=== PATIENT | female | born 1955 | race Caucasian/White ===

== ENCOUNTER 2021-05-20 13:19 | Outpatient (CLI) | payer BC, SELFPAY ==
--- NOTE | 2021-05-20 13:43 | XR_ITS ---
WS: [id number] Sacroiliac joints, 3 views, 05/20/2021. Clinical Data: L40.9 - Psoriasis, unspecified Comparison: None. Findings: The SI joints are normal in width. No erosion, sclerosis or destruction is seen. There are no fractur es or dislocations. The adjacent visualized pelvis and hips are unremarkable. XR/XR sacroiliac jts m 3V [id number] Impression: Negative SI joints.
--- NOTE | 2021-05-20 13:43 | XR_ITS ---
WS: [email or web address] Right hand, 3 views, 05/20/2021 Clinical Data: M25.50 - Pain in unspecified joint Comparison: None. Findings: No fractures or dislocations are seen. The soft tissues are unremarkable. Mild osteoarthr itic change of the second through fifth DIP joints and the right first MCP joint is seen. No periarti cular demineralization or calcifications are seen. 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
--- NOTE | 2021-05-20 13:43 | XR_ITS ---
WS: [email or web address] Left hand, 3 views, 05/20/2021 Clinical Data: M25.50 - Pain in unspecified joint Comparison: None. Findings: No fractures or dislocations are seen. The soft tissues are unremarkable. Mild osteoarthritic change of the second through fifth DIP joints is seen.There is no periarticular demineralization or calcific ations. 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
[2021-05-20 14:36] LABS: Erythrocyte Sedimentation Rate 5 mm/hr (0-15)
[2021-05-20 15:05] LABS: C Reactive Protein 1.3 mg/L (0.0-4.9); Magnesium 2.2 mg/dL (1.7-2.3); Phosphorus 3.8 mg/dL (2.5-4.5); Thyroid Stimulating Hormone 3.84 uIU/mL (0.27-4.20)
[2021-05-20 15:11] LABS: Cortisol Random 6.51 ug/dL (2.47-19.5); Hepatitis B Core AB, Total Non-Reactive (Nonreactive); Hepatitis B Surface Antigen Non-Reactive (Nonreactive); Hepatitis C Virus Antibody Non-Reactive (Nonreactive)
[2021-05-20 15:23] LABS: Rheumatoid Factor < 10.0 IU/mL (0-14)
[2021-05-21 11:54] LABS: COMPLEMENT COMPONENT C3C 134 mg/dL (83-193); COMPLEMENT COMPONENT C4C 27 mg/dL (15-57)
[2021-05-21 11:57] LABS: CENTROMERE B ANTIBODY <1.0 NEG AI (<1.0 NEG); JO-1 ANTIBODY <1.0 NEG AI (<1.0 NEG); RNP ANTIBODY <1.0 NEG AI (<1.0 NEG); SCL-70 ANTIBODY <1.0 NEG AI (<1.0 NEG); SJOGREN'S ANTIBODY (SS-A) <1.0 NEG AI (<1.0 NEG); SM ANTIBODY <1.0 NEG AI (<1.0 NEG); SS-B <1.0 NEG AI (<1.0 NEG)
[2021-05-21 13:04] LABS: COMPLEMENT, TOTAL (CH50) >60 U/mL (31-60)
[2021-05-21 14:07] LABS: Cyclic Citrullinated Peptide <16 UNITS
[2021-05-21 15:48] LABS: ANA SCREEN, IFA NEGATIVE (NEGATIVE)
[2021-05-21 16:27] LABS: THYROID PEROXIDASE ANTIBODIES 1 IU/mL (<9)
[2021-05-23 10:37] LABS: DNA AB (DS) CRITHIDIA,IFA NEGATIVE (NEGATIVE)
== END 2021-05-20 13:20 | disposition home or self-care (01) ==
LOC: RAD 13:24
PROVIDERS: PCP Internal Medicine; Visit Provider Internal Medicine
DX: M25.50 Pain in unspecified joint (principal); L40.9 Psoriasis, unspecified; Z11.59 Encounter for screening for other viral diseases; M19.042 Primary osteoarthritis, left hand; M19.041 Primary osteoarthritis, right hand
CPT/HCPCS: 36415; 72202; 73120; 82533; 83516; 83735; 84100; 84443; 85651; 86140; 86160; 86162; 86200; 86235; 86255; 86376; 86431; 86704; 86803; 87340